=== PATIENT | male | born 1995 | race Caucasian/White ===

== ENCOUNTER 2017-06-25 21:34 | Emergency (ER) | payer SELFPAY ==
[~2017-06-25] VITALS: Ht 160 cm; Wt 65.0 kg
[~2017-06-25 21:34] MED LIST: BUPR150T3 PO; CONC54TA4 PO
[2017-06-25 22:08] VITALS: BP 114/63; PULSE 90; RESP 16; TEMP 98; O2SAT 99
== END 2017-06-26 00:30 | disposition left against medical advice (07) ==
LOC: NED 21:34
DX: K92.9 Disease of digestive system, unspecified (principal)
CPT/HCPCS: 99281

== ENCOUNTER 2017-08-24 13:03 | Emergency (ER) | payer OTHER ==
[~2017-08-24] VITALS: Ht 160 cm; Wt 60.0 kg
[2017-08-24 13:12] VITALS: BP 132/69; PULSE 89; RESP 16; TEMP 98.2; O2SAT 100
[2017-08-24] MEDS ORDERED: TETANUS/DIPHTHERIA TOXOID ADULT 0.5 ML VIAL IM ONE (13:30)
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
== END 2017-08-24 14:54 | disposition home or self-care (01) ==
LOC: NEPD 13:03
DX: S52.501A Unspecified fracture of the lower end of right radius, initial encounter for closed fracture (principal); S40.212A Abrasion of left shoulder, initial encounter; F12.90 Cannabis use, unspecified, uncomplicated; F17.200 Nicotine dependence, unspecified, uncomplicated; V59.9XXA Occupant (driver) (passenger) of pick-up truck or van injured in unspecified traffic accident, initial encounter; Y93.E6 Activity, residential relocation; Z23 Encounter for immunization
CPT/HCPCS: 29125; 70450; 72125; 73110; 90471; 90714

== ENCOUNTER 2017-08-31 18:03 | Emergency (ER) | payer SELFPAY | END 2017-08-31 19:58 | disposition home or self-care (01) | LOC: NEPC 18:03 | DX: S52.571D Other intraarticular fracture of lower end of right radius, subsequent encounter for closed fracture with routine healing (principal); F90.9 Attention-deficit hyperactivity disorder, unspecified type; J45.909 Unspecified asthma, uncomplicated; F17.200 Nicotine dependence, unspecified, uncomplicated; F12.90 Cannabis use, unspecified, uncomplicated; X58.XXXD Exposure to other specified factors, subsequent encounter | CPT/HCPCS: 73110; 99281 ==